=== PATIENT | female | born 1985 ===

== ENCOUNTER 2021-04-14 10:28 | Emergency (ER) | payer MEDICARE ==
[2021-04-14] MEDS ORDERED: Ondansetron ODT 4 MG TAB ONE (11:36)
[2021-04-14] MEDS ORDERED: Ketorolac Tromethamine 30 MG/ML VIAL ONE (11:36)
== END 2021-04-14 12:00 | disposition home or self-care (01) ==
LOC: MADERS 10:28
DX: G43.919 Migraine, unspecified, intractable, without status migrainosus (principal)
CPT/HCPCS: 96372; 99283; J1885; Q0162

== ENCOUNTER 2021-05-29 22:19 | Emergency (ER) | payer MEDICARE ==
[2021-05-30] MEDS ORDERED: predniSONE 20 MG TAB ONE (00:03)
[2021-05-30] MEDS ORDERED: Ondansetron ODT 4 MG TAB ONE (00:03)
[2021-05-30] MEDS ORDERED: Ketorolac Tromethamine 30 MG/ML VIAL ONE (00:03)
== END 2021-05-30 01:14 | disposition home or self-care (01) ==
LOC: MADERS 22:19
DX: G43.009 Migraine without aura, not intractable, without status migrainosus (principal)
CPT/HCPCS: 96372; 99283; J1885; J7512; Q0162